=== PATIENT | male | born 1945 | race Caucasian/White ===

== ENCOUNTER 2016-11-05 14:18 | Inpatient (IN) | payer MEDICARE, BC ==
[~2016-11-05] VITALS: Ht 172.7 cm; Wt 75.7 kg
--- NOTE | 2016-11-05 14:20 | NUR ---
PT BIB FAMILY TO ER BED 05. PRESENTS W/ SEVERE RUE WEAKNESS AND NUMBNESS THAT STARTED AT 1330 TODAY. PT HAS HX OF STROKE. NO SLURRING OF SPEECH PER FAMILY. GOWNED AND PLACED ON MONITOR. DR ANTOINE AT BEDSIDE.
--- NOTE | 2016-11-05 14:28 | NUR ---
NURSE AT BEDSIDE TO DRAW LABS
--- NOTE | 2016-11-05 14:28 | NUR ---
CALLED CODE STROKE
--- NOTE | 2016-11-05 14:32 | NUR ---
PT LEFT TO CT
--- NOTE | 2016-11-05 14:32 | NUR ---
NURSING DOOR HANGER AT BEDSIDE
--- NOTE | 2016-11-05 14:32 | NUR ---
CALLED TELESTROKE LINE, CASE DISPATCHED TO DR SHARP
--- NOTE | 2016-11-05 14:34 | NUR ---
DR SHARP ON THE LINE WITH DR ANTOINE
--- NOTE | 2016-11-05 14:35 | NUR ---
PT ACCOMPANIED TO RADIOLOGY FOR A HEAD CT SCAN.
[2016-11-05 14:41] LABS: BASOPHILS # (AUTO) 0.1 /CMM (0.0-0.2); BASOPHILS % (AUTO) 1.4 % (0.0-2.0); EOSINOPHILS # (AUTO) 0.1 /CMM (0.0-0.7); EOSINOPHILS % (AUTO) 1.8 % (0.0-6.0); HEMATOCRIT 35 % (39-51); LYMPHOCYTES # (AUTO) 2.3 /CMM (0.8-4.8); LYMPHOCYTES % (AUTO) 29.4 % (20.0-44.0); MEAN CORPUSCULAR HEMOGLOBIN 25 PG (26.0-33.0); MEAN CORPUSCULAR HGB CONC 32 g/dl (31.0-36.0); MEAN CORPUSCULAR VOLUME 79 fL (80-96); MONOCYTES % (AUTO) 12.6 % (2.0-12.0); NEUTROPHILS # (AUTO) 4.4 /CMM (1.8-8.9); NEUTROPHILS % (AUTO) 54.8 % (43.0-81.0); PLATELET COUNT (AUTO) 281 /CMM (150-450); RED BLOOD CELL COUNT(AUTO) 4.37 MIL/uL (4.5-6.0); WHITE BLOOD COUNT (AUTO) 7.9 K/uL (4.3-11.0)
--- NOTE | 2016-11-05 14:45 | NUR ---
RADIOLOGIST DR CHRISTOPHER ON THE PHONE WITH DR ANTOINE
[2016-11-05 14:52] LABS: CALCIUM, SERUM 9.1 mg/dL (8.5-10.1); CARBON DIOXIDE 28 mmol/L (21-32); CHLORIDE 106 mmol/L (98-107); CREATININE 1.8 mg/dL (0.6-1.3); GLUCOSE 91 mg/dL (74-106); POTASSIUM 3.6 mmol/L (3.5-5.1); SODIUM SERUM 141 mmol/L (136-145); UREA NITROGEN, BLOOD 19 mg/dL (7-18)
[2016-11-05 14:55] LABS: INR 0.99 (0.87-1.13); PROTHROMBIN TIME 10.3 SECS (9.5-12.7)
[2016-11-05 14:57] LABS: ALANINE AMINOTRANSFERASE 20 U/L (12-78); ALBUMIN 3.5 g/dL (3.4-5.0); ALKALINE PHOSPHATASE 75 U/L (46-116); ASPARTATE AMINOTRANSFERASE 18 U/L (15-37); BILIRUBIN,DIRECT 0.1 mg/dL (0.0-0.2); BILIRUBIN,TOTAL 0.4 mg/dL (0.2-1.0); TOTAL PROTEIN, SERUM 7.2 g/dL (6.4-8.2)
[2016-11-05 14:59] LABS: TROPONIN I 0.069 ng/mL (0.00-0.056)
[2016-11-05] MEDS ORDERED: ASPIRIN 81 MG TAB.CHEW PO ONE (15:30)
[2016-11-05] MEDS ORDERED: ASPIRIN 81 MG TAB.CHEW ONE (15:47)
--- NOTE | 2016-11-05 16:05 | NUR ---
PAGED TICK INSPECTOR THERAPIST RESPIRATORY FOR CONSULT
--- NOTE | 2016-11-05 16:08 | NUR ---
PAGED DR JERNIGAN FOR PANEL ADMISSION
[2016-11-05 17:00] VITALS: BP 139/71
--- NOTE | 2016-11-05 17:00 | NUR ---
RN INITIAL NOTE RECEIVED REPORT FROM JOSEPH FROM ER. PT AWAKE AND ALERT X4. TRANSFERRED VIA WHEELCHAIR. IV LAC 18G PATENT AND INTACT. BELONGINGS LIST SIGNED. PT KAREEM. MONITOR CLOSELY NO C/O OF PAIN.
[2016-11-05] MEDS ORDERED: CARV6.252 PO (17:07)
[2016-11-05] MEDS ORDERED: IRBE150T28 PO (17:07)
[2016-11-05] MEDS ORDERED: ROSU40TA PO (17:07)
[2016-11-05] MEDS ORDERED: GABA800T2 PO (17:07)
[2016-11-05] MEDS ORDERED: CELE200C PO (17:07)
[2016-11-05] MEDS ORDERED: ASPI325T2 PO (17:07)
[2016-11-05] MEDS ORDERED: BLOOD SUGAR DIAGNOSTIC 1 EACH STRIP IN SCH (17:30)
[2016-11-05] MEDS ORDERED: Z GUARD REMEDY 2 OZ OINT TP PRN (17:30)
[2016-11-05] MEDS ORDERED: MAGNESIUM HYDROXIDE 30 ML UDC PO PRN (17:30)
[2016-11-05] MEDS ORDERED: ACETAMINOPHEN 325 MG TABLET PO PRN (17:30)
[2016-11-05] MEDS: CELECOXIB 100 MG CAPSULE PO SCH ×2 (17:30→18:37)
[2016-11-05] MEDS ORDERED: MAG HYDROX/AL HYDROX/SIMETH 30 ML UDC PO PRN (17:30)
[2016-11-05] MEDS ORDERED: ONDANSETRON HCL/PF 4 MG/2 ML VIAL IVP PRN (17:30)
[2016-11-05] MEDS ORDERED: ZOLPIDEM TARTRATE 5 MG TABLET PO PRN (17:30)
[2016-11-05] MEDS ORDERED: HYDROCODONE/APAP 5/325MG 1 EACH TABLET PO PRN (17:30)
[2016-11-05] MEDS ORDERED: GABAPENTIN 400 MG CAPSULE PO SCH (17:30)
[2016-11-05 17:31] VITALS: BP 139/71
[2016-11-05] MEDS ORDERED: INSULIN REGULAR, HUMAN 100 UNIT/ML 3 ML VIAL SQ PRN (18:00)
[2016-11-05] MEDS ORDERED: DEXTROSE 50%-WATER 50 ML DISP.SYRIN IV PRN (18:00)
[2016-11-05] MEDS: BLOOD SUGAR DIAGNOSTIC 1 EACH STRIP IN SCH (18:37)
--- NOTE | 2016-11-05 19:30 | NUR ---
KAREEM RN INITIAL NOTES RECEIVED PATIENT SITTING ON CHAIR IN ROOM WITH AT BEDSIDE. PATIENT DENIES PAIN OR DISCOMFORT. VERBALIZED HE WANTS TO GO HOME. DENIES SOB, ON RA STATES HE CAME IN DUE TO WORSENING RIGHT ARM WEAKNESS, BUT STATES HE'S BETTER NOW AND ABLE TO MOVE RIGHT ARM. BOTH HAND BRANCH OPERATION EVALUATION MANAGER STRONG, NO SPEECH PROBLEM NOTED, PATIENT AMBULATORY. NO DIFFICULTY WITH SWALLOWING NOTED. ON TELE MONITOR SR 74. WITH LAC 18G PATENT AND INTACT. CALL LIGHT KEPT WITHIN EASY REACH. WILL CONTINUE TO MONITOR.
[2016-11-05 20:00] VITALS: BP 126/60
--- NOTE | 2016-11-05 20:04 | NUR ---
RN CLOSING NOTE REPORT GIVEN TO TONJA. NO C/O OF PAIN REGAINING USE OF RIGHT ARM . PT STATING FEELING BETTER. A/O X4. PT ON RA. IV LAC PATENT AND INTACT. KAREEM SR. PT RESTING ALL SAFETY MEASURES IN PLACE. ALL ORDERS CARRIED OUT. PT REFUSED CELBREX TOOK THIS AM.
[2016-11-05] MEDS ORDERED: CRESTOR 40 MG PO SCH (21:00)
[2016-11-05] MEDS ORDERED: ASPIRIN 325 MG TABLET PO SCH (22:00)
--- NOTE | 2016-11-05 22:08 | NUR ---
PATIENT REFUSED MEDICATION ASA 325MG, EXPLAINED RISKS AND BENEFITSX3, PATIENT STILL INSISTS ON NOT TAKING MEDICATION.
[2016-11-06] VITALS: BP 96/72
[2016-11-06] MEDS: BLOOD SUGAR DIAGNOSTIC 1 EACH STRIP IN SCH ×2 (01:03)
[2016-11-06 01:47] VITALS: BP 96/72
[2016-11-06 03:56] VITALS: BP 134/77
[2016-11-06 04:00] VITALS: BP 134/77
--- NOTE | 2016-11-06 05:35 | NUR ---
KAREEM RN CLOSING NOTES PATIENT STATED HE WANTED TO GO HOME TO REST, HE DOES NOT FEEL RESTED WHEN HE'S IN THE HOSPITAL. STATED HE SIGNS HIMSELF AMA MORE THAN ONCE WHEN HE GOES TO THE HOSPITAL. EXPLAINED TO PATIENT THE NEED TO STAY LONGER DUE TO ELEVATED TROPONIN LEVELS, PATIENT STATED " I'M NOT AFRAID OF . IF I , I ." CHARGE NURSE INFORMED, DR. DEAN INFORMED, RN METALS SALES REPRESENTATIVE INFORMED. AT BEDSIDE FOR TRANSPORTATION. PATIENT IN STABLE CONDITION. NO C/O PAIN OR DISCOMFORT, DENIES SOB. IV REMOVED, CATHETER INTACT, PRESSURE DRESSING APPLIED. ID BAND REMOVED. BELONGING LIST SIGNED BY PATIENT AND . ALL BELONGINGS WITH PATIENT.
[2016-11-06] MEDS ORDERED: IRBESARTAN (150MG) 150 MG TABLET PO SCH (09:00)
[2016-11-06] MEDS ORDERED: CRESTOR 40 MG PO SCH (09:00)
[2016-11-06] MEDS ORDERED: CARVEDILOL 6.25 MG TABLET PO SCH (09:00)
--- NOTE | 2016-11-06 12:12 | NUR ---
Social service consult requested by Dr. Nguyen for Stroke. SW was attempting to see pt., however pt. left against medical advice this AM.
== END 2016-11-06 05:30 | disposition left against medical advice (07) | DRG 64 ==
LOC: ER 14:19 → TELE-TD 17:06
PROVIDERS: ADMIT Family Medicine; ATTEND Family Medicine
DX: I63.9 Cerebral infarction, unspecified (principal); I21.4 Non-ST elevation (NSTEMI) myocardial infarction; N17.9 Acute kidney failure, unspecified; I67.2 Cerebral atherosclerosis; I70.0 Atherosclerosis of aorta; Z86.73 Personal history of transient ischemic attack (TIA), and cerebral infarction without residual deficits; Z95.1 Presence of aortocoronary bypass graft; Z79.82 Long term (current) use of aspirin; I25.2 Old myocardial infarction; I25.10 Atherosclerotic heart disease of native coronary artery without angina pectoris; E78.5 Hyperlipidemia, unspecified; D50.9 Iron deficiency anemia, unspecified; D63.8 Anemia in other chronic diseases classified elsewhere; N18.3 Chronic kidney disease, stage 3 (moderate); I12.9 Hypertensive chronic kidney disease with stage 1 through stage 4 chronic kidney disease, or unspecified chronic kidney disease
CPT/HCPCS: 36415; 70450-TC; 71010-TC; 80048-TC; 80076-TC; 82962-TC; 84484-TC; 85025-TC; 85730-TC; 87081-TC; A4606; J1815; Z7610